=== PATIENT | male | born 1965 | race Asian ===

== ENCOUNTER 2025-07-12 12:14 | Emergency (ER) | payer OTHER ==
[~2025-07-12] VITALS: Ht 182.9 cm; Wt 79.0 kg
[2025-07-12 12:25] VITALS: BP 130/72; PULSE 79; RESP 18; TEMP 97.7; O2SAT 97
[2025-07-12] MEDS: KETOROLAC TROMETHAMINE 30 MG/ML VIAL IM ONE (13:07)
[2025-07-12] MEDS: ACETAMINOPHEN 500 MG TABLET PO ONE (13:07)
[2025-07-12] MEDS ORDERED: ACET-3385 PO (13:28)
[2025-07-12] MEDS ORDERED: IBUP-1492 PO (13:28)
== END 2025-07-12 13:36 | disposition home or self-care (01) ==
LOC: EMS 12:14
DX: S29.012A Strain of muscle and tendon of back wall of thorax, initial encounter (principal); E11.9 Type 2 diabetes mellitus without complications; W01.0XXA Fall on same level from slipping, tripping and stumbling without subsequent striking against object, initial encounter; Y93.89 Activity, other specified; Y92.89 Other specified places as the place of occurrence of the external cause; Y99.8 Other external cause status
CPT/HCPCS: 99283; 96372; J1885